=== PATIENT | male | born 1965 | race Caucasian/White ===

== ENCOUNTER → 2022-01-01 | Outpatient (CLI) | payer BC ==
--- NOTE | 2022-01-01 09:50 | XR ---
EXAMINATION TYPE: XR KUB DATE OF EXAM: 01/01/2022 COMPARISON: NONE HISTORY: Bladder stone TECHNIQUE: One view abdominal series FINDINGS: The osseous structures are intact. The bowel gas pattern is nonspecific. Hypertrophic change of the spine. Within the pelvis there is a 2.8 cm calcification likely representing the patient's reported h istory of bladder stone. IMPRESSION: 1. 2.8 cm pelvic calcification likely representing the patient's reported history of bladder calculus .
== END | disposition home or self-care (01) ==
LOC: RADXRMAIN 09:14
PROVIDERS: ATTEND Urology
DX: N21.9 Calculus of lower urinary tract, unspecified (principal)
CPT/HCPCS: 74018

== ENCOUNTER → 2022-01-23 | Outpatient (CLI) | payer BC ==
[2022-01-23 14:46] LABS: Basophils # (A) 0.03 X 10*3/uL (0.00-0.10); Basophils % (A) 0.4 %; Eosinophils # (A) 0.07 X 10*3/uL (0.04-0.35); HGB 16.2 g/dL (13.0-17.0); Immature Grans, Automated 0.7 %; Lymphocytes # (A) 1.52 X 10*3/uL (0.90-5.00); Lymphocytes % (A) 22.4 %; MCH 29.4 pg (27.0-32.0); MCHC 32.4 g/dL (32.0-37.0); MCV 90.7 fL (80.0-97.0); Mean Platelet Volume 10.1 fL (9.5-12.2); Monocytes % (A) 8.8 %; NRBC Per 100 WBC 0 /100 WBCS (0.0-0.0); Neutrophils # (A) 4.53 X 10*3/uL (1.80-7.70); Neutrophils % (A) 66.7 %; Platelet Count 222 X 10*3/uL (140-440); RBC 5.51 X 10*6/uL (4.40-5.60); RDW 13.3 % (11.5-14.5)
[2022-01-23 15:02] LABS: African American GFR (CKD) 95.7 (60.0-200.0); BUN/Creat Ratio 15.2 Ratio (12.00-20.00); Blood Urea Nitrogen 15.2 mg/dL (9.0-27.0); Calcium 9.4 mg/dL (8.7-10.3); Non-African American GFR(CKD) 82.6 (60.0-200.0); Potassium 4.9 mmol/L (3.5-5.5)
[2022-01-23 18:14] LABS: Appearance,Urine Clear (Clear); Bilirubin,Urine Negative (Negative); Blood,Urine Negative (Negative); Color,Urine Yellow (Yellow); Ketones,Urine Negative (Negative); Nitrite,Urine Negative (Negative); PH, Urine 5.5 (5.0-8.0); Specific Gravity,Urine 1.018 (1.001-1.030); Urobilinogen,Urine 0.2 (0.2,1.0)
== END | disposition home or self-care (01) ==
LOC: LABPAT 08:42
PROVIDERS: ATTEND Urology
DX: Z01.812 Encounter for preprocedural laboratory examination (principal); N21.9 Calculus of lower urinary tract, unspecified
CPT/HCPCS: 36415; 80048; 81003; 85025; 87086

== ENCOUNTER 2022-01-30 06:20 | Day surgery (SDC) | payer BC ==
--- NOTE | 2022-01-29 07:32 | P.GSHP ---
History of Present Illness H&P Date: 01/29/22 56 yo male with a 3 cm stone in his bladder who comes for cystolithotripsy. It was originally found because of gross hematuria. - Constitutional Constitutional: Denies chills, Denies fever - EENT Eyes: denies blurred vision, denies pain Ears, nose, mouth and throat: Denies headache, Denies sore throat - Cardiovascular Cardiovascular: Denies chest pain, Denies shortness of breath - Respiratory Respiratory: Denies cough, Denies 7 - Gastrointestinal Gastrointestinal: Denies abdominal pain, Denies diarrhea, Denies nausea, Denies vomiting - Genitourinary (Female) Genitourinary: Denies dysuria, Denies hematuria - Genitourinary (Male) Genitourinary: Denies dysuria, Denies hematuria - Musculoskeletal Musculoskeletal: Denies myalgias - Integumentary Integumentary: Denies pruritus, Denies rash - Neurological Neurological: Denies numbness, Denies weakness - Psychiatric Psychiatric: Denies anxiety, Denies depression - Endocrine Endocrine: Denies fatigue, Denies weight change Surgical - Exam - General well developed, well nourished, no distress - Eyes normal ocular movement, no icteric - ENT no hearing loss, no congestion - Neck no masses, trachea midline - Respiratory normal respiratory effort, clear to auscultation - Abdomen Abdomen: soft, non tender, no guarding, no rigid, no rebound - Genitourinary 30-40 gm prostate - Integumentary no rash, no abnormal pigmentation - Neurologic no disoriented, no combative - Psychiatric oriented to time, oriented to person, oriented to place, speech is normal, memory intact Results - Imaging Abdominal x-ray: report reviewed, image reviewed Assessment and Plan Assessment: Impression- bladder stone[large, > 3cm] Plan: cysto lithotripsy
[2022-01-30] MEDS ORDERED: LACTATED RINGERS 1,000 ML IV ONE (06:56)
--- NOTE | 2022-01-30 06:59 | XR ---
EXAMINATION TYPE: XR KUB DATE OF EXAM: 01/30/2022 6:53 AM CLINICAL HISTORY: Bladder stone. TECHNIQUE: Two supine KUB images of the abdomen are obtained. COMPARISON: Abdominal x-ray January 01, 2022. FINDINGS: Persistent oval 2.7 cm calcification over the slight right pelvis consistent with bladder c alculus. No definite nephrolithiasis. Overall nonobstructive bowel gas pattern. Visualized osseous structures are intact. IMPRESSION: As above.
[2022-01-30 07:08] LABS: Glucose,Whole Blood 135 mg/dL (70-110)
[2022-01-30] MEDS ORDERED: ONDANSETRON 4 MG/2 ML VIAL ONE (07:08)
[2022-01-30] MEDS ORDERED: DEXAMETHASONE SOD PHOSPHATE 4 MG/ML 1 ML VIAL IVP ONE (07:10)
[2022-01-30] MEDS ORDERED: ONDANSETRON 4 MG/2 ML VIAL IVP ONE (07:10)
[2022-01-30] MEDS ORDERED: ePHEDrine 50 MG/ML 1 ML VIAL ONE (07:26)
[2022-01-30] MEDS ORDERED: LIDOCAINE 2% INJ 20 MG/ML (2 ML VIAL) ONE (07:26)
[2022-01-30] MEDS ORDERED: fentaNYL (PF) 50 MCG/ML 2 ML AMP ONE (07:26)
[2022-01-30] MEDS ORDERED: MIDAZOLAM 2 MG/2 ML VIAL ONE (07:26)
[2022-01-30] MEDS ORDERED: PROPOFOL 10 MG/ML 20 ML VIAL IV ONE (07:26)
--- NOTE | 2022-01-30 08:24 | P.OP ---
Date of Procedure: 01/30/22 Preoperative Diagnosis: Bladder stone, large, greater than 2.5 cm Postoperative Diagnosis: Same Procedure(s) Performed: Cystoscopy lithotripsy Anesthesia: IMANA Surgeon: Blake Ca Estimated Blood Loss (ml): 10 Pathology: other (Stone) Condition: stable Disposition: PACU Indications for Procedure: The patient is 56. He has had gross hematuria. He has a 3 cm bladder stone. He comes for cystoscopy lithotripsy Description of Procedure: Patient brought to the operating suite. Given general anesthesia. Placed lithotomy position with sterile prep and drape. Cystoscopy with a Foroblique lens and 21-Wolof sheath identifies a normal anterior urethra. The prostatic urethra shows trilobar obstruction with an intravesical middle lobe. The bladder is inspected showing moderate trabeculation. There is a large stone, 3 cm on the posterior bladder wall. It is spiculated and old. With 1000 laser probe the stone is slowly broken into small pieces and flushed out of the bladder. At the end of the procedure there is no stone remaining. There is no significant bleeding. The bladder is drained and the patient is awakened and returned to recovery room good condition. He tolerated the procedure well be discharged home upon recovery and found the office. He may need a TURP in the future.
[2022-01-30] MEDS ORDERED: SODIUM CHLORIDE 0.9% 1,000 ML IV ONE ×2 (08:38)
[2022-01-30 08:53] VITALS: TEMP 97.3
[2022-01-30 09:41] VITALS: BP 143/78; PULSE 51; RESP 16
== END 2022-01-30 10:18 | disposition home or self-care (01) ==
LOC: OR 06:20
PROVIDERS: ATTEND Urology
DX: N21.0 Calculus in bladder (principal); R31.0 Gross hematuria; I48.91 Unspecified atrial fibrillation; E11.9 Type 2 diabetes mellitus without complications
CPT/HCPCS: 52318; 82365; 74018; J2250; J1100; J0690; J2405; J3010; J2704; J2001

== ENCOUNTER → 2023-04-30 | Outpatient (CLI) | payer BC ==
[2023-04-30 17:19] LABS: BUN/Creat Ratio 15.56 Ratio (12.00-20.00); Calcium 9.5 mg/dL (8.7-10.3); Carbon Dioxide 26.7 mmol/L (21.6-31.8); Chloride 105 mmol/L (96-109); Glucose 128 mg/dL (70-110); Potassium 4.2 mmol/L (3.5-5.5); Sodium 141 mmol/L (135-145)
[2023-04-30 17:24] LABS: Basophils # (A) 0.02 X 10*3/uL (0.00-0.10); Basophils % (A) 0.3 %; Eosinophils # (A) 0.07 X 10*3/uL (0.04-0.35); Eosinophils % (A) 1.1 %; HCT 44.5 % (39.6-50.0); HGB 14.7 g/dL (13.0-17.0); Lymphocytes # (A) 1.67 X 10*3/uL (0.90-5.00); Lymphocytes % (A) 26.4 %; MCH 28.7 pg (27.0-32.0); MCV 86.7 FL (80.0-97.0); Mean Platelet Volume 9.3 FL (9.5-12.2); Monocytes # (A) 0.62 X 10*3/uL (0.20-1.00); Monocytes % (A) 9.8 %; NRBC Per 100 WBC 0 X 10*3/uL (0.00-0.01); Neutrophils # (A) 3.91 X 10*3/uL (1.80-7.70); Neutrophils % (A) 61.8 %; Platelet Count 242 X 10*3/uL (140-440); RBC 5.13 X 10*6/uL (4.40-5.60); RDW 13.1 % (11.5-14.5); WBC 6.33 X 10*3/uL (4.50-10.00)
[2023-04-30 18:28] LABS: Appearance,Urine Clear (Clear); Bilirubin,Urine Negative (Negative); Blood,Urine Negative (Negative); Color,Urine Yellow (Yellow); Ketones,Urine Negative (Negative); Nitrite,Urine Negative (Negative); Specific Gravity,Urine 1.018 (1.001-1.030); Urobilinogen,Urine 0.2 E.U./DL
== END | disposition home or self-care (01) ==
LOC: LABPAT 11:30
PROVIDERS: ATTEND Urology
DX: Z01.812 Encounter for preprocedural laboratory examination (principal); C61 Malignant neoplasm of prostate; R31.29 Other microscopic hematuria
CPT/HCPCS: 36415; 80048; 81003; 85025; 86850; 86900; 86901; 87086

== ENCOUNTER 2023-05-06 05:57 | Day surgery (SDC) | payer BC ==
--- NOTE | 2023-05-05 14:02 | P.HPIHPCON ---
History of Present Illness H&P Date: 05/05/23 Chief Complaint: prostate cancer This is a 57-year-old male with history of deb 6 (3+3) prostate cancer . Option of a robotic radical prostatectomy versus radiation therapy was discussed with him in detail. Risk and benefit of each approach was discussed. He agreed to proceed with a robotic radical prostatectomy, Aware of the risk which includes but not limited to bleeding, infection, injury to nearby organs. Discussed also risks of urinary incontinence and erectile dysfunction. Discussed also risk of cancer recurrence, potential need for additional treatment and need for postoperative surveillance. Risk of anesthesia was also discussed. He understood all the risk and agreed to proceed with a robotic radical prostatectomy Consent for Procedure: I have explained the operation/procedure to the patient, including the risks, benefits, side effects, alternative therapies (including not receiving the proposed treatment or service), the likelihood of the patient achieving his/her goals, and potential recuperation problems for the procedure/sedation/analgesia, as well as any blood products, if indicated. I also explained to the patient the risks, benefits and side effects of the alternatives, as well as the risks related to not receiving the proposed procedure, care, treatment, or services. Past Medical History Past Medical History: Diabetes Mellitus, Osteoarthritis (OA) Additional Past Medical History / Comment(s): kidney stones, bladder stone early in 2022 year had infected cat bites to hand History of Any Multi-Drug Resistant Organisms: None Reported Past Surgical History: No Surgical Hx Reported Additional Past Surgical History / Comment(s): bladder stone surgery Additional Past Anesthesia/Blood Transfusion Reaction / Comment(s): no family problems w/anesthesia that he knows of Smoking Status: Never smoker Medications and Allergies Home Medications Medication Instructions Recorded Confirmed Type Cinnamon Bark [Cinnamon] 500 mg PO DAILY 01/29/22 04/28/23 History metFORMIN HCL [Glucophage] 500 mg PO BID 01/29/22 04/28/23 History Allergies Allergy/AdvReac Type Severity Reaction Status Date / Time No Known Allergies Allergy Verified 04/28/23 14:35 Surgical - Exam - General no distress, no pain - ENT normal nares, normal mucosa - Respiratory normal expansion, normal respiratory effort - Psychiatric oriented to time, oriented to person, oriented to place Assessment and Plan Assessment: -OR for robotic radical prostatectomy
[~2023-05-06 05:57] MED LIST: HEPARIN SODIUM,PORCINE/PF 5,000 UNIT/0.5 ML SYRINGE SQ PRN
[2023-05-06] MEDS ORDERED: ONDANSETRON 4 MG/2 ML VIAL IVP ONE (06:07)
[2023-05-06] MEDS ORDERED: DEXAMETHASONE SOD PHOSPHATE 4 MG/ML 1 ML VIAL IV ONE (06:07)
[2023-05-06] MEDS ORDERED: SCOPOLAMINE 1 MG/72 HR PATCH TRANSDERM ONE (06:07)
[2023-05-06] MEDS: LACTATED RINGERS 1,000 ML IV SCH ×2 (06:45→06:46)
[2023-05-06] MEDS ORDERED: MIDAZOLAM 2 MG/2 ML VIAL IV PRN (07:00)
[2023-05-06] MEDS ORDERED: fentaNYL (PF) 50 MCG/1 ML VIAL IVP ONE ×2 (07:06)
[2023-05-06 07:23] LABS: Glucose,Whole Blood 150 mg/dL (70-110)
[2023-05-06] MEDS ORDERED: ACETAMINOPHEN IV (For NPO) 1,000 MG/100 ML VIAL ONE (07:34)
[2023-05-06] MEDS ORDERED: ROPIVACAINE 5 MG/ML 30 ML VIAL ONE (07:34)
[2023-05-06] MEDS ORDERED: ROCURONIUM 10 MG/ML (5 ML VIAL) IV ONE (07:34)
[2023-05-06] MEDS ORDERED: MIDAZOLAM 2 MG/2 ML VIAL ONE (07:34)
[2023-05-06] MEDS ORDERED: PHENYLEPHRINE-0.9% NACL SYG 1,000 MCG/10 ML SYRINGE ONE (07:34)
[2023-05-06] MEDS ORDERED: SUCCINYLCHOLINE CHLORIDE 200 MG/10 ML VIAL IV ONE (07:34)
[2023-05-06] MEDS ORDERED: SODIUM CHLORIDE 0.9% (PF) 10 ML VIAL ONE (07:34)
[2023-05-06] MEDS ORDERED: PROPOFOL 10 MG/ML 20 ML VIAL IV ONE (07:34)
[2023-05-06] MEDS ORDERED: GLYCOPYRROLATE 0.2 MG/ML 2 ML VIAL ONE (07:34)
[2023-05-06] MEDS ORDERED: WATER FOR INJECTION, STERILE 10 ML VIAL IV ONE (07:34)
[2023-05-06] MEDS ORDERED: HYDROmorphone (PF) 1 MG/ML ONE (07:34)
[2023-05-06] MEDS ORDERED: fentaNYL (PF) 50 MCG/ML 2 ML AMP ONE (07:34)
[2023-05-06] MEDS ORDERED: NEOSTIGMINE 1 MG/ML 10 ML VIAL ONE (07:34)
[2023-05-06] MEDS ORDERED: BUPIVACAINE (PF) 0.25% 30 ML VIAL SQ ONE ×2 (08:27)
--- NOTE | 2023-05-06 11:16 | P.ANPRN ---
Procedure Note - Anesthesia - Nerve Block Performed Bilateral Erector Spinae Single Time Out Performed: Yes (0706) Date of Procedure: 05/06/23 Procedure Start Time: : Procedure Stop Time: :12 Location of Patient: PreOp Indication: Acute Post-Operative Pain, Requested by Surgeon Specifically requested for management of pain by : Gerard Greenwood Sedation Type: Sedate with meaningful contact maintained Preparation: Sterile Prep Position: Supine Catheter: None Needle Types: Pajunk Needle Gauge: 21 Ultrasound used to visualize needle placement: Yes Ultrasound used to observe medication spread: Yes Injectate: 0.5% Ropivacaine (see comment for volume) (15cc + 10cc nacl pf) Blood Aspirated: No Pain Paresthesia on Injection Noted: No Resistance on Injection: Normal Image Stored and Saved: Yes Events: Uneventful and Well Tolerated
[2023-05-06 11:35] LABS: Glucose,Whole Blood 228 mg/dL (70-110)
[2023-05-06] MEDS ORDERED: INSULIN ASPART (NovoLOG) 100 UNIT/ML VIAL SQ ONE (11:41)
[2023-05-06] MEDS: HYDROmorphone 0.5 MG/0.5 ML SYRINGE IVP PRN ×2 (11:55→12:14)
[2023-05-06] MEDS ORDERED: ONDANSETRON 4 MG/2 ML VIAL IVP PRN (12:54)
[2023-05-06] MEDS ORDERED: HYDROmorphone 1 MG/ML 1 ML SYRINGE IVP PRN (12:54)
--- NOTE | 2023-05-06 13:00 | P.OP ---
Date of Procedure: 05/06/23 Preoperative Diagnosis: Prostate cancer Postoperative Diagnosis: Same Procedure(s) Performed: Robotic-assisted laparoscopic radical prostatectomy Implants: none Anesthesia: LOUISE Surgeon: Gerard Greenwood Estimated Blood Loss (ml): 100 Pathology: other (Prostate and bilateral seminal vesicle) Condition: stable Disposition: PACU Indications for Procedure: This is a 57-year-old male with history of deb 6 (3+3) prostate cancer . Option of a robotic radical prostatectomy versus radiation therapy was discussed with him in detail. Risk and benefit of each approach was discussed. He agreed to proceed with a robotic radical prostatectomy, Aware of the risk which includes but not limited to bleeding, infection, injury to nearby organs. Discussed also risks of urinary incontinence and erectile dysfunction. Discussed also risk of cancer recurrence, potential need for additional treatment and need for postoperative surveillance. Risk of anesthesia was also discussed. He understood all the risk and agreed to proceed with a robotic radical prostatectomy Description of Procedure: After preoperative antibiotics were started, the patient was taken to the operating room. Anesthesia was induced and the patient was placed in a supine position, with adequate padding of the pressure points, shoulders, back, legs and arms. He was then prepped and draped in the standard fashion. A critical pause was performed using two patient identifiers. A 16F richardson catheter was placed to gravity drainage. A pneumo-peritoneum was created with placement of a Veress needle to 20 mm Hg without complication, and a 8 Fr trocar was placed above the umbillicus. Under direct vision a 8mm robotic ports was placed lateral to each rectus slightly below the camera port. The left iliac fossa 8mm port was placed. The right customer relations assistant right iliac fossa 12mm port and right paramedian 5mm portwere placed. After the patient was placed in the trendelenberg position, the robot was then docked to the 8mm robotic ports and then each robotic arm and tower was checked in relation to the patient's legs and hands to avoid inadvertent compression. The peritoneal cavity was inspected. An inverted U-shaped incision began laterally to the left medial umbilical ligament and extended high across the midline to the right umbilical ligament. The limbs of the "U" extended to the level of the vasa on both sides. We next developed the preperitoneal space and the space of Retzius. Cautery was used to dissected the bladder away from the prostate. After the anterior bladder neck was incised and the bladder entered the the posterior shanna dder neck was exposed and the ureteral orifces identified. The posterior bladder neck was then incised and dissected away from the prostate. The vas and the seminal vesicles were now exposed and dissected to their insertions into the prostate and were not spared. The posterior layer of the Denonvillier's fascia was incised to enter meghana the plane between prostate and perirectal fat. Each lateral pedicle was controlled with the vessel sealer. Complete nerve preservation was performed bilaterally The puboprostatic ligament was incised where it inserted into the apex of the prostate and a plane between urethra and dorsal venous complex developed to expose the anterior urethral surface. The anterior wall of the urethra was transected with the cut setting a few millimeters distal to the apex of the prostate. The dorsal vein was ligated using 3-0 V lock . The urethrovesical anastomosis was performed . the posterior denovillers was reapproximated using 3-0 V lock. A 6 and 9inch 3-0 V-Lock suture was used to anastomose the urethra and bladder, starting at the 6:00 posterior position. Mucosa was secured in every stitch, to ensure a mucosa to mucosa anastomosis. The stitch was regularly cinched and the anastomosis tightened. Care was taken to not violate the ureteral orifices. The Richardson catheter was advanced, the bladder filled, and the anastomosis was tested, as described above. Anastomsis was watertight at 150mL The periumbilical fascia was closed with 1-0-PDS suture in figure of eight fashion. All ports were closed with a subcuticular 4-0 monocryl and Dermabond. Sponge, instrument, and needle counts were correct at the end of the case x2. All specimens including prostate and lymph nodes were sent to pathology for diagnosis and will be available in a week. The patient tolerated the surgery well and without complication. He awoke without difficulty and was taken to the recovery room in stable condition
[2023-05-06] MEDS: SODIUM CHLORIDE 0.9% 1,000 ML IV SCH (13:28)
[2023-05-06] MEDS ORDERED: SODIUM CHLORIDE 0.9% 1,000 ML IV ONE (13:39)
[2023-05-06] MEDS: HEPARIN SODIUM,PORCINE 5,000 UNIT/ML 1 ML VIAL SQ SCH ×2 (15:20→23:51)
[2023-05-06 16:20] LABS: Glucose,Whole Blood 166 mg/dL (70-110)
[2023-05-06] MEDS: KETOROLAC 15 MG/ML 1 ML VIAL IVP SCH ×2 (17:46→23:50)
[2023-05-06 19:13] LABS: Glucose,Whole Blood 198 mg/dL (70-110)
[2023-05-06] MEDS: metFORMIN 500 MG TAB PO SCH (20:11)
[2023-05-06 21:18] LABS: Glucose,Whole Blood 146 mg/dL (70-110)
[2023-05-07] MEDS: SODIUM CHLORIDE 0.9% 1,000 ML IV SCH (02:15)
[2023-05-07] MEDS: KETOROLAC 15 MG/ML 1 ML VIAL IVP SCH ×2 (05:05→11:25)
[2023-05-07 07:35] VITALS: BP 122/66; PULSE 70; RESP 18; TEMP 98.6
[2023-05-07] MEDS: metFORMIN 500 MG TAB PO SCH (09:02)
[2023-05-07] MEDS: HEPARIN SODIUM,PORCINE 5,000 UNIT/ML 1 ML VIAL SQ SCH (09:02)
--- NOTE | 2023-05-07 10:18 | P.DS ---
Providers Attending physician: Gerard Greenwood MD Primary care physician: Dina Delgado Hospital Course: this is a 57-year-old male underwent a robotic radical prostatectomy on May 06. Patient was admitted to the hospital postoperatively. Please see op note dated May 06 for surgery details. He was discharged home on postoperative day #1, at time of discharge she was tolerating a diet, ambulating, pain was controlled Plan - Discharge Summary Discharge Rx Participant: No New Discharge Prescriptions: No Action metFORMIN HCL [Glucophage] 500 mg PO BID Cinnamon Bark [Cinnamon] 500 mg PO DAILY Discharge Medication List Cinnamon Bark [Cinnamon] 500 mg PO DAILY 01/29/22 [History] metFORMIN HCL [Glucophage] 500 mg PO BID 01/29/22 [History]
[2023-05-07 11:11] LABS: Glucose,Whole Blood 161 mg/dL (70-110)
== END 2023-05-07 14:30 | disposition home or self-care (01) ==
LOC: OR 05:57 → 4SSUR 11:13 → OR 05-07 14:30
PROVIDERS: ATTEND Urology
DX: C61 Malignant neoplasm of prostate (principal); E11.9 Type 2 diabetes mellitus without complications; M19.90 Unspecified osteoarthritis, unspecified site; Z79.899 Other long term (current) drug therapy; Z79.84 Long term (current) use of oral hypoglycemic drugs
CPT/HCPCS: 55866; S2900; 64999

== ENCOUNTER → 2023-06-18 | Outpatient (CLI) | payer BC | END | disposition home or self-care (01) | LOC: LABWHC1 12:15 | PROVIDERS: ATTEND Urology | DX: C61 Malignant neoplasm of prostate (principal) | CPT/HCPCS: 36415; 84153 ==